=== PATIENT | male | born 2000 | race Two or more races ===

== ENCOUNTER 2024-01-18 18:50 | Emergency (ER) | payer BC ==
[2024-01-18] MEDS: Ondansetron 4 MG/2 ML SDV IVPUSH ONE (19:42)
[2024-01-18] MEDS: Ketorolac 30 MG/ML SDV IVPUSH ONE (19:42)
[2024-01-18] MEDS: Sodium Chloride 0.9% 1,000 ML IV ONE (19:42)
[2024-01-18 19:48] LABS: BASOPHILS ABSOLUTE AUTO 0.1 K/mm3 (0.0-0.2); BASOPHILS PERCENT AUTO 0.5 % (0.0-1.0); EOSINOPHILS ABSOLUTE AUTO 0.1 K/mm3 (0.0-0.4); EOSINOPHILS PERCENT AUTO 0.7 % (0.0-6.0); HEMATOCRIT 45.3 % (42.0-52.0); HEMOGLOBIN 15.8 gm/dl (14.0-18.0); IMMATURE GRAN ABSOLUTE AUTO 0.03 K/mm3 (0.00-0.05); IMMATURE GRAN PERCENT AUTO 0.3 % (0.0-0.4); LYMPHOCYTES ABSOLUTE AUTO 1.6 K/mm3 (1.0-4.8); LYMPHOCYTES PERCENT AUTO 15.1 % (24.0-44.0); MEAN CORPUSCULAR HGB CONC 34.9 g/dl (32.0-36.0); MONOCYTES ABSOLUTE AUTO 0.5 K/mm3 (0.0-0.8); MONOCYTES PERCENT AUTO 4.9 % (0.0-8.0); NEUTROPHILS ABSOLUTE AUTO 8.4 K/mm3 (1.8-7.7); NEUTROPHILS PERCENT AUTO 78.5 % (41.0-71.0); PLATELET COUNT,PLT 227 K/mm3 (150-400); RED BLOOD CELL COUNT 5.27 M/mm3 (4.52-5.90); WHITE BLOOD CELL COUNT,WBC 10.71 K/mm3 (3.9-11.3)
[2024-01-18 20:12] LABS: A/G RATIO 2.3 (1-2); ALBUMIN 5.3 g/dl (3.4-5.0); ANION GAP 12.7 (5-15); BILIRUBIN TOTAL 2.2 mg/dL (0.2-1.0); BUN/CREATININE RATIO 15.5 (14-18); CALCIUM 9.3 mg/dL (8.5-10.1); CREATININE 1.1 mg/dL (0.7-1.3); EST CRCL DRUG DOSING (CG) 111.24 mL/min; POTASSIUM,K 3.7 mEq/L (3.5-5.1); PROTEIN TOTAL,TP 7.6 g/dl (6.4-8.2)
[2024-01-18] MEDS: SUMAtriptan 6 MG/0.5 ML SDV SUBCUT ONE (20:38)
[2024-01-18] MEDS: Acetaminophen 325 MG Tab PO ONE (20:38)
[2024-01-18] MEDS: Ondansetron 4 MG Tab.DIS PO ONE (21:37)
== END 2024-01-18 21:40 | disposition home or self-care (01) ==
LOC: JD.ED 18:50
DX: G43.909 Migraine, unspecified, not intractable, without status migrainosus (principal)
CPT/HCPCS: 36415; 80053; 85025; 96361; 96372; 96374; 96375; 99283; A9270; J1885; J2405; J3030; J7030